=== PATIENT | male | born 1985 | race Two or more races ===

== ENCOUNTER 2020-12-01 16:42 | Emergency (ER) | payer SELFPAY ==
[~2020-12-01] VITALS: Ht 182.9 cm; Wt 83.9 kg
[2020-12-01 16:49] VITALS: BP 132/90
== END 2020-12-01 22:06 | disposition left against medical advice (07) ==
LOC: ER 16:44
DX: M79.89 Other specified soft tissue disorders (principal); Z53.21 Procedure and treatment not carried out due to patient leaving prior to being seen by health care provider
CPT/HCPCS: 73130

== ENCOUNTER 2025-07-05 07:02 | Emergency (ER) | payer SELFPAY ==
[~2025-07-05] VITALS: Ht 182.9 cm; Wt 89.7 kg
--- NOTE | 2025-07-05 07:27 | ED.PDOC ---
HPI (NEURO) HPI Comments HPI: This is a 40 year old male presenting to the ED with chief complaint of facial droop. Patient reports that at around 3pm yesterday, he started to experience left sided facial droop with associated facial numbness, tingling, and loss of taste. Patient relays that he has had no other neurological deficits at this time. Patient denies any extremity weakness, numbness, chest pain, SOB, dizziness, headache, or syncope. Initial Vitals BP: 169/111 HR: 80 RR: 16 O2: 97% Temp: 97.7F Past Medical History: ADHD Past Surgical History: Denies Social History: Denies ETOH and smoking, +Marijuana use Medications: None Allergies: NKDA HPI: Poor Historian. MANUELA: Left facial Salgado's palsy Can not fully close his left eye. Noted left facial droop. Otherwise neurologically intact. REVIEW OF SYSTEMS: CONSTITUTIONAL: Denies acute: fever, diaphoresis, chills, generalized weakness. HEAD: Denies acute: headache, photophobia Eyes: Denies acute: Double vision, vision loss, eye pain, eye discharge. EARS: Denies acute: tinnitus, hearing loss, ear discharge, ear pain, THROAT: Denies acute: sore throat, swelling, difficulty swallowing , pain with swallowing, change in voice. NECK: Denies acute: neck pain, neck swelling, stiff neck. HEART: Denies acute : chest pain, palpitations, LUNGS: Denies acute: SOB, wheezing, cough, hemoptysis ABDOMEN: Denies acute: abdominal pain, Nausea, Vomiting, diarrhea, melena , hematemesis, hematochezia SKIN: Denies acute: rash, redness, lesions, itchiness. EXTREMITIES: Denies acute: calf pain, weakness, denies pain in extremity. Denies acute: Low back pain. Neuro: Denies acute: tremors, seizure like activity, confusion, dizziness, change in mental status, loss of bowel or bladder function, cauda equina like symptoms. : Denies acute: dysuria, hematuria, flank pain, increase in urinary frequency. PSYCH: Denies acute: hallucination, suicidal ideation, homicidal ideation. PHYSICAL EXAM: General: ----no---acute distress, awake and alert. Head: normocephalic, atraumatic. Neck: supple, trachea is midline, no swelling. Throat: Normal phonation. Eyes:, no erythema, no purulent discharge, no proptosis, no icterus. Heart: regular rate, regular rhythm, no significant murmur appreciated. Lungs: no apparent respiratory distress, Able to speak in full sentences. No wheezing, no rhonchi, no crackles. No stridors Clear to auscultation bilaterally. Abdomen: non tender to palpation, non distended, soft, no guarding, no rebound, + bowel sounds. Neuro: Awake, Alert, oriented to name, self, situation, follows commands GCS=15. Speech is normal. Skin: no petechia, no purpura, no cyanosis, non-pale, not jaundice. Lower extremities: --no - Pitting edema no deformity, no focal swelling, no calf TTP. Makes eye contact. moves all four extremities. Face: Left apparent facial droop. Ambulating in the ED independently. Stroke: finger to nose cerebellar testing is intact. No pronator drift. 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 Noted left facial droop. Otherwise CN 2-12 are grossly intact, No nystagmus. No nuchal rigidity, Kernig's sign, Brudzinski's sign, no meningeal signs. ED COURSE: DISCLAIMER: This medical document was created using an electronic medical record system with voice recognition software and computerized dictation system. Although this document has been carefully reviewed, there might still be some phonetic and typographical errors. Occasional wrong-word or "sound-alike" substitutions may have occurred due to the inherent limitations of voice recognition software. These areas are purely typographical due to imperfections of the software programs and do not reflect any compromise in the patient's medical care. Please read the chart carefully and recognize, using context, where these substitutions have occurred. Chief Complaint: Stroke Time Seen by MD: 07:25 Primary Care Provider: XUIES Reviewed Notes: Medications, Allergies Information Source: Patient, Relative (Mother) Mode of Arrival: Ambulatory Was a procedure done? Was a procedure done?: No X-Ray, Labs, Meds, VS Vital Signs Date Time Temp Pulse Resp B/P (MAP) Pulse Ox O2 Delivery O2 Flow Rate FiO2 07/05/25 10:15 97.4 56 16 128/91 (103) 98 97.4 07/05/25 07:50 89 16 95 Room Air* 0 21 07/05/25 07:37 97.6 87 16 140/87 (104) 97 97.6 07/05/25 07:37 87 16 97 Room Air 07/05/25 07:07 97.7 80 16 169/111 97 97.7 Lab Test 07/05/25 07:47 Range/Units White Blood Count 6.3 4.4-10.8 10^3/uL Red Blood Count 5.12 4.5-5.90 10^6/uL Hemoglobin 15.6 13.5-17.5 g/dL Hematocrit 44.7 41.0-53.0 % Mean Corpuscular Volume 87.4 80.0-100.0 fL Mean Corpuscular Hemoglobin 30.5 28.0-32.0 pg Mean Corpuscular Hemoglobin Concent 35.0 32.0-36.0 g/dL Red Cell Distribution Width 13.4 11.8-14.3 % Platelet Count 287 140-450 10^3/uL Mean Platelet Volume 8.6 6.9-10.8 fL Neutrophils (%) (Auto) 57.0 37.0-80.0 % Lymphocytes (%) (Auto) 27.2 10.0-50.0 % Monocytes (%) (Auto) 6.7 0.0-12.0 % Eosinophils (%) (Auto) 7.8 H 0.0-7.0 % Basophils (%) (Auto) 1.3 0.0-2.0 % Neutrophils # (Auto) 3.6 1.6-8.6 10 ^3/uL Lymphocytes # (Auto) 1.7 0.4-5.4 10 ^3/uL Monocytes # (Auto) 0.4 0-1.3 10 ^3/uL Eosinophils # (Auto) 0.5 0-0.8 10 ^3/uL Basophils # (Auto) 0.1 0-0.2 10 ^3/uL Nucleated Red Blood Cells 0.0 % Sodium Level 140 136-145 mmol/L Potassium Level 4.3 3.5-5.1 mmol/L Chloride Level 108 H 98-107 mmol/L Carbon Dioxide Level 26 20-31 mmol/L Anion Gap 6 5-15 Blood Urea Nitrogen 13 9-23 mg/dL Creatinine 1.03 0.700-1.30 mg/dL Glomerular Filtration Rate Calc 93 >90 mL/min BUN/Creatinine Ratio 12.6 10.0-20.0 Serum Glucose 94 74-106 mg/dL Calcium Level 9.4 8.7-10.4 mg/dL Total Bilirubin 0.6 0.2-1.0 mg/dL Aspartate Amino Transferase (AST) 19 13-40 U/L Alanine Aminotransferase (ALT) 23 7-40 U/L Alkaline Phosphatase 58 46-116 U/L Total Protein 7.3 5.7-8.2 g/dL Albumin 4.9 H 3.2-4.8 g/dL Current Medications Medications (Trade) Dose Ordered Sig/Sol Route Start Time Stop Time Status Last Admin Prednisone 60 mg ONCE ONCE PO 07/05/25 07:30 07/05/25 07:31 DC 07/05/25 07:59 Acyclovir (Zovirax Tablet) 800 mg ONCE ONCE PO 07/05/25 07:30 07/05/25 07:31 DC 07/05/25 07:58 Time of 1ST Reevaluation: 08:24 Reevaluation 1ST: Unchanged Time of 2ND Reevaluation: 11:26 ( OF NOW CT SCAN REPORTS ARE STILL PENDING) Patient Education/Counseling: Diagnosis, Treatment Family Education/Counseling: Diagnosis, Treatment Departure 1 Departure Time of Disposition: 07:53 Impression: Primary Impression: Left-sided Salgado's palsy Disposition: 01 HOME / SELF CARE / HOMELESS Condition: Stable Additional Instructions: Additional instructions: You MUST follow-up with your primary care/family doctor in 1 to 2 days. If you are unable to see your primary care/family doctor, please return to our emergency room for re-assessment and re-evaluation in 1 to 2 days. Return to the emergency room here in our facility or to the nearest ER [facility] if your symptoms change or worsen. CONSULTATIONS: you MUST Follow-up for consultation as soon as possible with: -neurology in 1-2 days. Please call for appointment. You MUST call the consultants office yourself to make an appointment. You may need to arrange that through your insurance and/or your primary/family doctor. If you are unable to see the inside sales consultant in 1 to 2 days, you must return to our emergency room (or any other ER of your choice) for re-assessment and re- evaluation. Adequate fluid hydration. Wear an eye patch to the affected eye. Apply [id number] artificial tears every 20 minutes while awake. e-Prescriptions Valacyclovir Hcl (Valacyclovir Hcl) 500 Mg Tab 2 TAB PO TID for 7 Days, #42 TAB 0 Refills Prov: ERIC NORRIS DO 07/05/25 Prednisone (Prednisone) 20 Mg Tab 60 MG PO DAILY for 7 Days, #21 TAB Prov: ERIC NORRIS DO 07/05/25 Discharged With: Self Critical Care Note Critical Care Time?: No I personally scribed for ERIC NORRIS DO ([email or web address]) on 07/05/25 at 07:27. Electronically submitted by Matti St ([email or web address]). ERIC NORRIS DO Jul 05, 2025 07:27
[2025-07-05 07:50] VITALS: PULSE 89; RESP 16; O2SAT 95
[2025-07-05] MEDS: ACYCLOVIR 400 MG TAB PO ONE (07:58)
[2025-07-05] MEDS: predniSONE 20 MG TAB PO ONE (07:59)
[2025-07-05 08:11] LABS: Hematocrit 44.7 % (41.0-53.0); Hemoglobin 15.6 g/dL (13.5-17.5); Mean Corpuscular Hemoglobin 30.5 pg (28.0-32.0); Mean Corpuscular Volume 87.4 fL (80.0-100.0); Nucleated Red Blood Cells % 0.0 %
[2025-07-05 08:23] LABS: Alanine Aminotransferase 23 U/L (7-40); Alkaline Phosphatase 58 U/L (46-116); Anion Gap 6 (5-15); BUN/Creatinine Ratio 12.6 (10.0-20.0); Bilirubin, Total 0.6 mg/dL (0.2-1.0); Blood Urea Nitrogen 13 mg/dL (9-23); Calcium 9.4 mg/dL (8.7-10.4); Carbon Dioxide 26 mmol/L (20-31); Glucose 94 mg/dL (74-106); Potassium 4.3 mmol/L (3.5-5.1); Sodium 140 mmol/L (136-145); Total Protein 7.3 g/dL (5.7-8.2)
[2025-07-05 08:27] LABS: Albumin 4.9 g/dL (3.2-4.8); Chloride 108 mmol/L (98-107)
[2025-07-05 10:15] VITALS: BP 128/91; PULSE 56; RESP 16; TEMP 97.4; O2SAT 98
[2025-07-05] MEDS ORDERED: PRED20TA2 PO (11:47)
[2025-07-05] MEDS ORDERED: VALA500T33 PO (11:47)
--- NOTE | 2025-07-05 11:50 | DVH ---
EXAM: CT HEAD WITHOUT CONTRAST INDICATION: L facial droop TECHNIQUE: CT of the head without intravenous contrast. Radiation Dose Information: CT Dose: CTDI volume is 53.73 mGy. Dose-length product is 968.79 mGy*cm The dose indicators for CT are the volume Computed Tomography (CT) Dose Index (CTDIvol) and the Dose Length Product (DLP), and are measured in units of mGy and mGy-cm, respectively. These indicators are not patient dose, but values generated from the CT scanner acquisition factors. The report includes radiation exposure data for exposures received during this examination. COMPARISON: None FINDINGS: There is no evidence of acute intracranial hemorrhage, extra-axial collection, mass effect, midline s hift, herniation or hydrocephalus. The ventricles, sulci and cisterns are age appropriate. The rock-white differentiation is intact. Patchy periventricular and subcortical white matter hypoattenuation is nonspecific but may be related to small vessel ischemic disease. The visualized paranasal sinuses and mastoid air cells are clear. The surrounding soft tissues and osseous structures are unremarkable. IMPRESSION: No acute intracranial abnormality.
== END 2025-07-05 11:41 | disposition left against medical advice (07) ==
LOC: ER 07:02
DX: G51.0 Bell's palsy (principal)
CPT/HCPCS: 36415; 70450; 80053; 85025; 99284; J7512